=== PATIENT | male | born 1955 | race Caucasian/White ===

== ENCOUNTER 2025-01-19 19:11 | Emergency (ER) | payer MEDICARE, OTHER, SELFPAY ==
--- NOTE | ~2025-01-19 | CT_ITS ---
CLINICAL HISTORY: lump on occiptal scalp CT cervical spine without contrast Comparison: None provided Findings: Normal vertebral body alignment. Moderate multilevel spondylosis with disc space narrowing, endplate sclerosis, osteophytosis, and facet arthropathy. No acute fractures or dislocations. No acute findings on limited view of the intracranial contents. No cervical fluid collections or masses. Lung apices are clear. IMPRESSION: No acute findings. Moderate multilevel spondylosis. This document has been electronically signed by: Lilo Sidhu MD on 01/19/2025 19:57:40
--- NOTE | ~2025-01-19 | CT_ITS ---
CLINICAL HISTORY: hit head CT head without contrast Comparison: None provided Findings: No intra-axial mass, midline shift, hydrocephalus, or acute hemorrhage. No significant atrophy-like change or white matter disease. There is no sinus or mastoid fluid. The orbits are unremarkable. There is no acute fracture. Small left occipital scalp hematoma/contusion. IMPRESSION: 1. No acute intracranial findings specifically, no acute intracranial hemorrhage. 2. Small left occipital scalp hematoma/contusion. The underlying calvarium is intact. This document has been electronically signed by: Lilo Sidhu MD on 01/19/2025 20:02:49
[2025-01-19 19:14] VITALS: BP 124/81; PULSE 69; RESP 16; TEMP 36.1; O2SAT 98
--- NOTE | 2025-01-19 19:19 | ECG_ITS ---
Test Reason : sycope Blood Pressure : */* mmHG Vent. Rate : 69 BPM Atrial Rate : 69 BPM P-R Int : 166 ms QRS Dur : 88 ms QT Int : 376 ms P-R-T Axes : 53 -31 37 degrees QTcB Int : 402 ms Normal sinus rhythm Left axis deviation Abnormal ECG No previous ECGs available Referred By: Mikal Garrido Electronically Signed By: RITU CHUNG MD
--- NOTE | 2025-01-19 19:20 | ED_ITS ---
HPI - General Adult General Chief complaint: Syncope Stated complaint: Fall yesterday, lump back of head Time Seen by Provider: 01/19/25 19:51 History of Present Illness ED Provider: this chart is a duplicate entered in error Related Data Allergies Allergy/AdvReac Type Severity Reaction Status Date / Time No Known Allergies Allergy Verified 01/19/25 19:20 [facility] Social History Social History Smoked in Last 30 Days: No Use of substances other than those prescribed or required for medical reasons: No Advance Directives: No Advance Directives Information Provided: No Do you have a plan to hurt others: No Plan Physical Exam ED Vital Signs: Vital Signs - 24 hr 01/19/25 19:14 01/19/25 20:00 01/19/25 20:50 Temperature 97.0 F 98.3 F Pulse Rate 69 71 Respiratory Rate 16 16 Blood Pressure 124/81 114/68 Pulse Oximetry 98 98 96 Oxygen Delivery Method Room Air Room Air Room Air 01/19/25 21:19 01/19/25 22:12 Temperature 97.7 F 97.7 F Pulse Rate 76 68 Respiratory Rate 16 16 Blood Pressure 123/68 113/69 Pulse Oximetry 98 98 Oxygen Delivery Method Room Air Room Air BMI result Body Mass Index 30.0 Course Course Course Narrative: RME: 7-year-old male presents to ED for syncopal episode which led to head injury. Patient has scalp hematoma. Patient's other arterial x3. NIH score is 0. Labs EKG imaging ordered Medications Administered Discontinued Medications Generic Name Dose Route Start Last Admin Trade Name Freq PRN Reason Stop Dose Admin Sodium Chloride 1,000 mls @ 999 mls/hr 01/19/25 21:00 01/19/25 21:50 Ns IV 01/19/25 22:00 Infused .Q1H1M ODIN Infusion Medical Decision Making Lab Data 01/19/25 19:44 01/19/25 19:44 Labs: Lab Results 01/19/25 01/19/25 Range/Units 19:44 20:42 WBC 9.1 (4.8-10.8) X10*3/uL RBC 6.12 H (4.60-5.80) X10*6/uL Hgb 13.1 L (14.0-18.0) g/dl Hct 40.5 L (42.0-52.0) % MCV 66.2 L (80.0-98.0) fL MCH 21.4 L (27.0-33.0) pg MCHC 32.3 (31.0-36.0) g/dl RDW 17.2 H (11.0-16.0) % Plt Count 90 L (160-400) X10*3/uL MPV Not Reportable Immature Gran % (Auto) 0.4 (0.0-0.4) % Neut % (Auto) 73.7 H (45-73) % Lymph % (Auto) 14.1 L (20-40) % [place] % (Auto) 9.0 (2-11) % Eos % (Auto) 2.0 (0-4) % Baso % (Auto) 0.8 (0-2) % Lymph # (Auto) 1.3 (1.2-4.9) X10*3/uL [place] # (Auto) 0.8 (0.1-1.2) X10*3/uL Eos # (Auto) 0.2 (0.0-0.4) X10*3/uL Baso # (Auto) 0.1 (0.0-0.2) X10*3/uL Abs Immat Gran (auto) 0.04 H (0.00-0.03) X10*3/uL Absolute Neuts (auto) 6.7 (2.0-8.3) x10*3/uL Absolute Nucleated RBC 0.020 H (0.0-0.012) X10*3/uL Nucleated RBC % (auto) 0.2 (0.0-0.2) /100WBC Smear Tech's Comments VERIFIED PT 12.7 H (10.9-12.4) SEC INR 1.1 (0.9-1.1) APTT 29.9 (26.0-36.8) SEC Sodium 140 (135-145) mmol/L Potassium 4.5 (3.3-5.1) mmol/L Chloride 108 (96-108) mmol/L Carbon Dioxide 23 (22-29) mmol/L Anion Gap 14 (12-20) BUN 25 H (9-16) mg/dL Creatinine 1.65 H (0.5-1.4) mg/dL Estim Creat Clear Calc 45.2 Estimated GFR 41 Random Glucose 91 (60-115) mg/dL Calcium 9.2 (8.4-10.2) mg/dL Total Bilirubin 1.4 H (0.0-1.0) mg/dL AST 29 (5-37) U/L ALT 24 (0-40) U/L Alkaline Phosphatase 63 (39-117) U/L Troponin I High Sens < 2.7 (<3.5-35.0) ng/L Total Protein 7.2 (6.5-8.0) g/dL Albumin 4.3 (3.5-5.0) g/dL Discharge Plan Discharge Clinical Impression: Dehydration, Syncope Patient Disposition: Home, Self-Care Instructions: Dehydration (ED), Syncope (DC) Additional Instructions: _ DISCHARGE DIAGNOSES: Syncope unclear cause could be arrhythmia or dehydration Acute kidney injury, this means a slight increase of your creatinine or kidney function blood test that needs to be followed to be short does not get any worse he will need this repeated an at least 1 or 2 weeks. HISTORY OF PRESENTATION: ?Passing out episode after 8 mi walk yesterday with a preceding symptom of lightheadedness dizziness and sweating no chest pain. EMERGENCY DEPARTMENT COURSE,TESTS, TREATMENTS: While in the ED today you had reassuring workup in the ER including generally reassuring point of care ultrasound of your heart with no major structural derangements and expected findings after aortic valve repair. Your creatinine kidney function was 1.65 on December 23 per your records you provided me your most recent creatinine was 1.33 this increase is possibly indicative of dehydration but you could have other reasons for this and it needs to be followed closely. You had n other major laboratory abnormalities including negative heart attack enzyme test. Your EKG was without signs of acute damage to the hard that we have no comparison to previous EKGs DISCHARGE MEDICATIONS: ?[We have made no changes to your regular medication regimen] FOLLOW-UP: ?Call your primary or general physician soon as possible to discuss your symptoms, your ED visit and to discuss follow up plans Call your poly packer and heat sealer for follow up as you may need to be set up with an event monitor other further workup to evaluate for syncopal episode or passing out INSTRUCTIONS ?& RETURN PRECAUTIONS: If any symptoms change first call your primary physician, if it is after-hours your primary doctors office should have a provider director of vocational training you can speak with. If the symptoms are severe or very concerning to you then call 911 or return to the ED. Continue taking your medications. Drink enough fluid about 2-3 L of water daily more if your active or if it is hot and your outside all day. Chito Cifuentes MD Emergency Physician [facility] Interventions: ED Discharge Assessment Last Done: 01/19/25 22:12 Discharge Date/Time: 01/19/25 21:45 Print Language: Vietnamese
[2025-01-19 20:00] VITALS: BP 114/68; PULSE 71; RESP 16; TEMP 36.8; O2SAT 98
[2025-01-19 20:06] LABS: Alanine Aminotransferase 24 U/L (0-40); Albumin Level 4.3 g/dL (3.5-5.0); Alkaline Phosphatase 63 U/L (39-117); Anion Gap 14 (12-20); Aspartate Amino Transferase 29 U/L (5-37); Blood Urea Nitrogen 25 mg/dL (9-16); Calcium 9.2 mg/dL (8.4-10.2); Carbon Dioxide 23 mmol/L (22-29); Chloride 108 mmol/L (96-108); Creatinine Clr Calc Pharmacy 45.2; Estimated Glomerular Filt Rate 41; Potassium 4.5 mmol/L (3.3-5.1); Sodium 140 mmol/L (135-145); Total Protein 7.2 g/dL (6.5-8.0)
[2025-01-19 20:14] LABS: Troponin-I High Sensitivity < 2.7 ng/L (<3.5-35.0)
--- NOTE | 2025-01-19 20:33 | ED_ITS ---
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 He is healthy and quite active. He regularly walks multiple miles per day and yesterday he did the same from about 8 to noon he walked 8 miles it was quite hot out. He felt some nausea but no chest pain headache or any other symptoms until he got home. After a quick shower he felt diaphoretic and clammy and lightheaded he sat in a chair in the next thing he remembers he was on the floor in his living room. He sustained a small hematoma in the left occiput denied neck pain. He is not on blood thinners. He did not seek evaluation until today. He has not been having any headache neck pain chest pain difficulty breathing palpitations fever nausea vomiting abdominal pain flank pain focal motor or sensory changes. Tells me he had clean coronary arteries on catheterization in preparation for his aortic repair and has not had any complications from his aortic valve repair he follows with a hand scraper locally here Related Data Allergies Allergy/AdvReac Type Severity Reaction Status Date / Time No Known Allergies Allergy Verified 01/19/25 19:20 [facility] Social History Social History Smoked in Last 30 Days: No Use of substances other than those prescribed or required for medical reasons: No Advance Directives: No Advance Directives Information Provided: No Do you have a plan to hurt others: No Plan Physical Exam 2 Vital Signs: Vital Signs: Last Vital Signs Temp 97.7 F 01/19/25 22:12 Pulse 68 01/19/25 22:12 Resp 16 01/19/25 22:12 BP 113/69 01/19/25 22:12 Pulse Ox 98 01/19/25 22:12 O2 Del Method Room Air 01/19/25 22:12 BMI result Body Mass Index 30.0 Const: Other: EXAM: Gen: Alert, awake, well appearing, well hydrated. Head: Atraumatic Eyes: Anicteric, Normal conjunctiva. ENT: Moist mucosa, no pallor. ? Neck: Supple. Skin: ?No observable rash or bruising on exposed or examined skin Respiratory: Breathing comfortably, No distress.Clear to auscultation bilaterally, symmetric chest expansion, No wheeze, rales, ronchi. Cardiovascular: Regular rate and rhythm. 2/6 systolic murmur appreciated best at the right parasternal border. Well perfused periphery, warm extremities. No edema. ? Abdominal: No FOCAL TENDERNESS. Soft, no objective distension. No palpable masses or obvious organomegaly. ?No guarding, no rebound tenderness or other peritoneal findings. : No flank tenderness. Neuro: Alert. Gross movement of all extremities intact. ? Psych: Calm. Cooperative. MSK: No grossly visible deformity. Vital signs: See flowsheet Medications Administered Discontinued Medications Generic Name Dose Route Start Last Admin Trade Name Freq PRN Reason Stop Dose Admin Sodium Chloride 1,000 mls @ 999 mls/hr 01/19/25 21:00 01/19/25 21:50 Ns IV 01/19/25 22:00 Infused .Q1H1M ODIN Infusion Medical Decision Making Medical Decision Making MDM Narrative: Medical Decision Making: This is a 70-year-old pleasant quite healthy male with a history of aortic valve repair he has had multiple syncopal episodes in the past. Two of these episodes were before valve repair. Yesterday's episode as above was after significant exertion on a hot day. Primary suspicion was for dehydration/vasovagal/orthostasis however given his age history of aortic valve repair. Testing Interpreted Independently: ECG: Sinus rhythm rate 69 QTC 402. Biphasic P wave in the precordium. Large P waves inferiorly. Poor R-wave progression no acute ischemic changes. No comparison ECGs See point of care ultrasound interpretation and my procedure note Radiology or Lab testing Results Reviewed: Labs show creatinine 1.65 with no comparison we will try to see if he has access to outside lab records on his portal. Consults: Not Applicable Independent Historians/External Chart Reviews: Not Applicable Social Determinants of Health Impacting MDM/Planning: Not Applicable Lab Data 01/19/25 19:44 01/19/25 19:44 Labs: Lab Results 01/19/25 01/19/25 Range/Units 19:44 20:42 WBC 9.1 (4.8-10.8) X10*3/uL RBC 6.12 H (4.60-5.80) X10*6/uL Hgb 13.1 L (14.0-18.0) g/dl Hct 40.5 L (42.0-52.0) % MCV 66.2 L (80.0-98.0) fL MCH 21.4 L (27.0-33.0) pg MCHC 32.3 (31.0-36.0) g/dl RDW 17.2 H (11.0-16.0) % Plt Count 90 L (160-400) X10*3/uL MPV Not Reportable Immature Gran % (Auto) 0.4 (0.0-0.4) % Neut % (Auto) 73.7 H (45-73) % Lymph % (Auto) 14.1 L (20-40) % [place] % (Auto) 9.0 (2-11) % Eos % (Auto) 2.0 (0-4) % Baso % (Auto) 0.8 (0-2) % Lymph # (Auto) 1.3 (1.2-4.9) X10*3/uL [place] # (Auto) 0.8 (0.1-1.2) X10*3/uL Eos # (Auto) 0.2 (0.0-0.4) X10*3/uL Baso # (Auto) 0.1 (0.0-0.2) X10*3/uL Abs Immat Gran (auto) 0.04 H (0.00-0.03) X10*3/uL Absolute Neuts (auto) 6.7 (2.0-8.3) x10*3/uL Absolute Nucleated RBC 0.020 H (0.0-0.012) X10*3/uL Nucleated RBC % (auto) 0.2 (0.0-0.2) /100WBC Smear Tech's Comments VERIFIED PT 12.7 H (10.9-12.4) SEC INR 1.1 (0.9-1.1) APTT 29.9 (26.0-36.8) SEC Sodium 140 (135-145) mmol/L Potassium 4.5 (3.3-5.1) mmol/L Chloride 108 (96-108) mmol/L Carbon Dioxide 23 (22-29) mmol/L Anion Gap 14 (12-20) BUN 25 H (9-16) mg/dL Creatinine 1.65 H (0.5-1.4) mg/dL Estim Creat Clear Calc 45.2 Estimated GFR 41 Random Glucose 91 (60-115) mg/dL Calcium 9.2 (8.4-10.2) mg/dL Total Bilirubin 1.4 H (0.0-1.0) mg/dL AST 29 (5-37) U/L ALT 24 (0-40) U/L Alkaline Phosphatase 63 (39-117) U/L Troponin I High Sens < 2.7 (<3.5-35.0) ng/L Total Protein 7.2 (6.5-8.0) g/dL Albumin 4.3 (3.5-5.0) g/dL Procedures Procedure Narrative Procedure Narrative: EMERGENCY ULTRASOUND INTERPRETATION-Limited Echocardiography [This study was ordered, performed, and interpreted by myself. The study reveals: Impression: NORMAL LV FUNCTION, NO RV DYSFUNCTION, NO PERICARDIAL EFFUSION] [Emergent Cardiac for Indication: Views Used: PLAX, PSSA, A4, SX, IVC Pericardial Effusion/Tamponade Findings: NONE RV Dilation (> LV diam in 4ch apical): NONE Global LV Fxn: NORMAL IVC Dilation and Resp Variation: NORMAL Performed by: MD Vane Images were stored CPT:47601] Discharge Plan Discharge Clinical Impression: Dehydration, Syncope Patient Disposition: Home, Self-Care Instructions: Dehydration (ED), Syncope (DC) Additional Instructions: _ DISCHARGE DIAGNOSES: Syncope unclear cause could be arrhythmia or dehydration Acute kidney injury, this means a slight increase of your creatinine or kidney function blood test that needs to be followed to be short does not get any worse he will need this repeated an at least 1 or 2 weeks. HISTORY OF PRESENTATION: ?Passing out episode after 8 mi walk yesterday with a preceding symptom of lightheadedness dizziness and sweating no chest pain. EMERGENCY DEPARTMENT COURSE,TESTS, TREATMENTS: While in the ED today you had reassuring workup in the ER including generally reassuring point of care ultrasound of your heart with no major structural derangements and expected findings after aortic valve repair. Your creatinine kidney function was 1.65 on December 23 per your records you provided me your most recent creatinine was 1.33 this increase is possibly indicative of dehydration but you could have other reasons for this and it needs to be followed closely. You had n other major laboratory abnormalities including negative heart attack enzyme test. Your EKG was without signs of acute damage to the hard that we have no comparison to previous EKGs DISCHARGE MEDICATIONS: ?[We have made no changes to your regular medication regimen] FOLLOW-UP: ?Call your primary or general physician soon as possible to discuss your symptoms, your ED visit and to discuss follow up plans Call your hand scraper for follow up as you may need to be set up with an event monitor other further workup to evaluate for syncopal episode or passing out INSTRUCTIONS ?& RETURN PRECAUTIONS: If any symptoms change first call your primary physician, if it is after-hours your primary doctors office should have a provider financial reporting consultant you can speak with. If the symptoms are severe or very concerning to you then call 911 or return to the ED. Continue taking your medications. Drink enough fluid about 2-3 L of water daily more if your active or if it is hot and your outside all day. Chito Cifuentes MD Emergency Physician [facility] Interventions: ED Discharge Assessment Last Done: 01/19/25 22:12 Discharge Date/Time: 01/19/25 21:45 Print Language: Persian
[2025-01-19 20:35] LABS: Hemoglobin 13.1 g/dl (14.0-18.0); PLT CLUMP 1; SCAN SMEAR FLAG 1
[2025-01-19 20:37] LABS: Hematocrit 40.5 % (42.0-52.0); Imm Gran Abs Auto 0.04 X10*3/uL (0.00-0.03); Imm Gran Pct Auto 0.4 % (0.0-0.4); Lymphocytes Absolute Auto 1.3 X10*3/uL (1.2-4.9); MANUAL DIFF FLAG SCAN; Mean Corpuscular HGB Conc 32.3 g/dl (31.0-36.0); Mean Corpuscular Hemoglobin 21.4 pg (27.0-33.0); Mean Corpuscular Volume 66.2 fL (80.0-98.0); NRBC Abs Auto 0.020 X10*3/uL (0.0-0.012); NRBC Pct Auto 0.2 /100WBC (0.0-0.2); Red Blood Count 6.12 X10*6/uL (4.60-5.80)
[2025-01-19 20:39] LABS: PLT ABN DIST 1; White Blood Count 9.1 X10*3/uL (4.8-10.8)
[2025-01-19 20:50] VITALS: PULSE 76; O2SAT 96
[2025-01-19 20:59] LABS: INTERNATIONAL NORM RATIO 1.1 (0.9-1.1); Prothrombin Time 12.7 SEC (10.9-12.4)
[2025-01-19 21:02] LABS: Partial Thromboplastin Time 29.9 SEC (26.0-36.8)
[2025-01-19 21:07] LABS: Platelet Count 90 X10*3/uL (160-400)
[2025-01-19 21:19] VITALS: BP 123/68; PULSE 76; RESP 16; TEMP 36.5; O2SAT 98
[2025-01-19 22:12] VITALS: BP 113/69; PULSE 68; RESP 16; TEMP 36.5; O2SAT 98
== END 2025-01-19 21:45 | disposition home or self-care (01) ==
PROVIDERS: Physician Assistant; Emergency Provider Emergency Medicine; PCP Family Medicine
DX: R55 Syncope and collapse (principal); E86.0 Dehydration; R94.31 Abnormal electrocardiogram [ECG] [EKG]; R11.0 Nausea; R51.9 Headache, unspecified; M54.2 Cervicalgia; Z79.899 Other long term (current) drug therapy
CPT/HCPCS: 36415; 70450; 72125; 80053; 84484; 85025; 85610; 85730; 93005; 96360; 99284; 99285

== ENCOUNTER → 2025-01-19 19:19 | Outpatient (BNV) | payer MEDICARE, OTHER, SELFPAY | PROVIDERS: Emergency Provider Emergency Medicine; PCP Family Medicine; Visit Provider Internal Medicine Cardiovascular Disease | DX: R94.31 Abnormal electrocardiogram [ECG] [EKG] (principal); R55 Syncope and collapse | CPT/HCPCS: 93010 ==

== ENCOUNTER → 2025-01-19 19:19 | Outpatient (BNV) | payer MEDICARE, OTHER, SELFPAY | PROVIDERS: Emergency Provider Emergency Medicine; PCP Family Medicine; Visit Provider Student in an Organized Health Care Education/Training Program | DX: M47.812 Spondylosis without myelopathy or radiculopathy, cervical region (principal); S00.03XA Contusion of scalp, initial encounter | CPT/HCPCS: 70450; 72125 ==